=== PATIENT | female | born 1975 | race Caucasian/White ===

== ENCOUNTER 2023-11-26 08:47 | Emergency (ER) | payer OTHER, SELFPAY ==
[2023-11-26 08:51] VITALS: BP 134/86
[2023-11-26 09:19] LABS: Urine Albumin Negative (Neg - Trace); Urine Bilirubin Negative (Negative); Urine Character Clear (Clear); Urine Color Yellow; Urine Glucose Negative (Negative); Urine Ketone 3+ (Negative); Urine Leukocyte Negative (Negative); Urine Nitrite Negative (Negative); Urine Occult Blood Negative (Negative); Urine Specific Gravity 1.015 (<1.030); Urine Urobilinogen Negative (Neg - 1+)
--- NOTE | 2023-11-26 09:33 | ED.GENMED ---
History of Present Illness
General
Chief Complaint: Abdominal Pain
Time Seen by Provider: 11/26/23 09:08
History of Present Illness
History of Present Illness:
48-year-old female without significant past medical history presenting to the emergency department for abdominal pain and distention after abdominoplasty 3 days ago by plastic surgery. Patient went to see her plastic surgeon today given complaint
of abdominal pain and distention, noted to be significantly distended on his exam, Dr. Mcdaniel. Primary concern at that time was urinary retention, patient reports that she has been having feeling of urinary frequency with incomplete emptying.
Today, had several episodes of vomiting. No report of any fevers. She has had decreased p.o. intake over the past 3 days. She denies ever having issues with urinary retention in the past. She notes that she has been taking pain medication at
home, hydrocodone. Denies additional acute medical complaints at this time.
Past History
Past History
ED Past Medical History: None
ED Past Surgical History: Tonsilectomy
Social History
Tobacco: Non-smoker
Phy Exam
Physical Exam
Physical Exam:
General: Well-appearing, no clinical signs of dehydration, nontoxic and in no acute distress
HEENT: protecting airway
Neck: appears supple
CV: Normal heart rate, regular rhythm, no evidence of cyanosis
Resp: No accessory muscle use, no increased work of breathing
Abd: Soft and non-distended, appropriately healing incisions to the lower abdomen. No current distention, however Ulrich catheter has already been placed, draining. Mild generalized nonfocal tenderness.
Extremities: No deformities, no swelling, no erythema
Neuro: alert, no focal neurologic deficit
: deferred
Rectal: deferred
Psych: Normal affect
Skin: Intact
Course
Orders/Labs/Results
Orders:
Orders
11/26/23 09:08
Urinalysis Reflex To Culture Urgent
Date Specimen was Collected: 11/26/23
Time Specimen was Collected: 09:06
09/07/24 09:27
0.9% Sodium Chloride 1000 ml [Nss] 1,000 ml IV BOLUS
Morphine Sulfate 4 mg IV NOW STA
Ondansetron Injectable [Zofran] 4 mg IV NOW STA
11/26/23 09:29
CT Abd/pelvis W Iv Cont Urgent
Comment:
Reason For Exam: abdominal pain, s/p abdominoplasty 2 days ago
11/26/23 09:30
Test Result ONCE
11/26/23 10:02
Complete Blood Count/With Diff Urgent
Comprehensive Metabolic Panel Urgent
HCG, Serum Qualitative Screen Urgent
11/26/23 10:08
Ulrich [Ulrich Placement- Treatment] ONCE
Reason for insertion: Acute Retention
Abnormal Lab Results
11/26/23 11/26/23
09:08 10:02
WBC 11.9 H 10^3/uL
(4.8-10.8)
RBC 4.10 L 10^6/uL
(4.20-5.40)
MCH 32.4 H pg
(27.0-31.0)
Absolute Neuts (auto) 10.0 H 10^3/uL
(1.4-6.5)
Absolute Lymphs (auto) 0.7 L 10^3/uL
(1.2-3.4)
Absolute Monos (auto) 1.1 H 10^3/uL
(0.1-0.6)
Neutrophils % 84.1 H %
(42.2-75.2)
Lymphocytes % 6.2 L %
(20.5-51.1)
Sodium 132 L mmol/L
(135-145)
Chloride 97 L mmol/L
(98-107)
Carbon Dioxide 13 L* mmol/L
(22-30)
AST 125 H U/L
(14-36)
ALT 49 H U/L
(0-35)
Urine Ketones 3+ A
(Negative)
11/26/23 10:02
11/26/23 10:02
Vital Signs
Initial and Last Documented VS:
Initial Vital Signs
Temp Pulse Resp BP Pulse Ox
98.0 F 98 18 134/86 97
11/26/23 08:51 11/26/23 08:51 11/26/23 08:51 11/26/23 08:51 11/26/23 08:51
Last Documented Vital Signs
Temp Pulse Resp BP Pulse Ox
98.0 F 68 17 116/68 99
11/26/23 08:51 11/26/23 11:07 11/26/23 11:07 11/26/23 11:07 11/26/23 11:07
MDM/Problems Addressed
MDM/Problems Addressed:
48-year-old female without significant past medical history presenting for abdominal pain and distention with urinary hesitancy status post abdominoplasty 3 days ago. Vital signs on arrival are normal.
On exam, patient is well-appearing, no acute distress or discomfort. However, patient evaluated by nursing staff prior to my assessment, noted to have distention with urinary hesitancy with concern of urinary retention. Ulrich catheter placed and
appropriately draining, now draining over 2 L of urine. Suspected source of patient's discomfort, notes that her pain and discomfort has overall improved, however still having some abdominal pain. Patient's plastic surgeon is also at bedside. He
feels reassured based on her examination status post Ulrich catheter, significant improvement in distention. Possible urinary tract infection versus side effect from recent anesthesia and Ulrich catheter insertion during her plastic surgery
procedure. Patient was preemptively placed on Keflex, will likely alter appearance of urinalysis. Will check laboratory analysis, urinalysis and CT imaging to ensure no additional acute process. Will start patient on IV fluids, has had decreased
p.o. intake for 3 days. Will administer morphine and Zofran for patient's symptoms and reassess for improvement.
13:10 - Patient's labs are unremarkable, mild transaminitis. CT shows changes consistent with abdominoplasty, otherwise no abscess or additional concerning features. Urine without sign of infection, however again is already on Keflex. Will change
antibiotic in the setting of potential UTI with Keflex. In discussion with patient's surgeon, he did discuss with urology, and patient will follow-up in his office for Ulrich removal and trial of voiding. Otherwise patient remains hemodynamically
stable. Feel stable for discharge with close and for follow-up with her surgeon. Return precautions discussed and patient verbalized understanding
*Critical Care Note
Total Time (30-74mins, 75-104mins- exclusive of procedures): Not Applicable
ED Attending Note
-
Portions of this chart may have been created with voice recognition software.� Occasional wrong word or��sound alike� substitutions may have occurred due to the inherent limitations of voice recognition software.
Discharge Plan
Departure
Prescriptions:
No Action
Tums: Chewable Tablet
1 tab.chew PO MEALS PRN (Reason: heartburn)
Patient Comments:
pt took before and after meals and in the middle of the night
26-iron [id number] [Vitafol-One] 1 EACH capsule
1 tab PO Daily
hydrocodone-acetaminophen [[place]] 1 EACH tablet
1 ea PO Q6 Qty: 10 0RF
Referrals:
Nisha Khan FEED CRUSHER OPERATOR [Family Provider] -
Interventions
Interventions:
*Risk Screen - Suicide Last Done: 11/26/23 09:05
*General Assessment Last Done: 11/26/23 09:05
*Neglect/Abuse Screening Last Done: 11/26/23 09:05
*ED COVID-19 Vaccine History Last Done: 11/26/23 09:05
JR-Xwrntn-Lkuxgewicf Assessment Last Done: 11/26/23 09:05
Discharge Date and Time
Print Language: YEMENI
[2023-11-26] MEDS: MORPHINE SULFATE 4 MG IV (09:57)
[2023-11-26] MEDS: ZOFRAN 4 MG IV (09:57)
[2023-11-26] MEDS: NSS 1000 IV (09:58)
[2023-11-26 10:05] VITALS: BP 120/69
[2023-11-26 10:20] LABS: % Basophils 0.2 % (0-2); % Eosinophils 0.3 % (0-6); % Immature Granulocytes 0.3 % (0-0.5); % Lymphocytes 6.2 % (20.5-51.1); % Monocytes 8.9 % (1.7-9.3); % Neutrophils 84.1 % (42.2-75.2); Absolute Lymphocytes 0.7 10^3/uL (1.2-3.4); Absolute Monocytes 1.1 10^3/uL (0.1-0.6); Hematocrit 38.3 % (37.0-47.0); Hemoglobin 13.3 g/dL (12.0-16.0); Mean Corp Hgb Conc. 34.7 g/dL (33.0-37.0); Mean Corpuscular Hgb 32.4 pg (27.0-31.0); Mean Corpuscular Volume 93.4 fL (81.0-99.0); Mean Platelet Volume 10.4 fL (7.4-10.4); Nucleated Red Blood Cells % 0 %; Platelet Count 206 10^3/uL (130-400); Red Cell Dist. Width 11.8 % (11.5-14.5); White Blood Cell Count 11.9 10^3/uL (4.8-10.8)
[2023-11-26 10:31] LABS: HCG, Serum Qualitative Screen Negative
[2023-11-26 10:32] LABS: ALT (SGPT) 49 U/L (0-35); AST (SGOT) 125 U/L (14-36); Albumin 4.2 g/dl (3.5-5.0); Alkaline Phosphatase 56 U/L (38-126); Blood Urea Nitrogen 12 mg/dl (7-17); Carbon Dioxide 13 mmol/L (22-30); Chloride 97 mmol/L (98-107); Glucose 84 mg/dl (70-99); Potassium 4.8 mmol/L (3.5-5.1); Sodium 132 mmol/L (135-145); Total Bilirubin 1.1 mg/dl (0.2-1.3); Total Protein 6.6 g/dl (6.3-8.2); eGFR > 60.00
[2023-11-26 11:07] VITALS: BP 116/68
[2023-11-26 13:00] VITALS: BP 118/68
== END 2023-11-26 13:50 | disposition home or self-care (01) ==
LOC: EMR 08:47
PROVIDERS: Emergency Medicine; EMERGENCY PHYSICIAN Student in an Organized Health Care Education/Training Program; FAMILY PHYSICIAN Nurse Practitioner Family
DX: R10.9 Unspecified abdominal pain (principal); R33.9 Retention of urine, unspecified
CPT/HCPCS: 99284; 96374; 96375; 96361; 74177; 80053; 81003; 84703; 85025; Q9967